=== PATIENT | male | born 1960 | race Caucasian/White ===

== ENCOUNTER 2019-05-04 22:29 | Emergency (ER) | payer MEDICAID ==
[~2019-05-04] VITALS: Ht 188 cm; Wt 89.8 kg
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
[2019-05-04] MEDS ORDERED: HYDROCODONE/APAP 10/325MG 1 EA TABLET ONE (22:45)
[2019-05-04] MEDS ORDERED: ONDANSETRON 4 MG TAB.RAPDIS ONE (22:46)
[2019-05-04] MEDS ORDERED: ONDANSETRON 4 MG TAB.RAPDIS SL ONE (23:00)
[2019-05-04] MEDS ORDERED: HYDROCODONE/APAP 10/325MG 1 EA TABLET PO ONE (23:00)
[2019-05-04] MEDS ORDERED: ASPIRIN 81 MG TAB.CHEW PO ONE (23:00)
[2019-05-04] MEDS ORDERED: IV NS 0.9% 1,000 ML BAG IV ONE (23:00)
[2019-05-04] MEDS ORDERED: NITROGLYCERIN PACKET 1 GM PACKET TD ONE (23:00)
[2019-05-04] MEDS ORDERED: CEFAZOLIN 1 GM in IV D5W 50 ML IV ONE (23:00)
[2019-05-04] MEDS ORDERED: NITROGLYCERIN PACKET 1 GM PACKET ONE (23:04)
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
[2019-05-04] MEDS ORDERED: ASPIRIN 81 MG TAB.CHEW ONE (23:05)
[2019-05-04 23:17] LABS: BASOPHILS # (AUTO) 0.1 /CMM (0.0-0.2); BASOPHILS % (AUTO) 1.4 % (0.0-2.0); EOSINOPHILS % (AUTO) 1.1 % (0.0-6.0); HEMATOCRIT 37 % (39-51); LYMPHOCYTES # (AUTO) 1.4 /CMM (0.8-4.8); LYMPHOCYTES % (AUTO) 14.2 % (20.0-44.0); MEAN CORPUSCULAR HGB CONC 35 g/dl (31.0-36.0); MEAN CORPUSCULAR VOLUME 87 fL (80-96); MONOCYTES % (AUTO) 9.9 % (2.0-12.0); NEUTROPHILS # (AUTO) 7.1 /CMM (1.8-8.9); NEUTROPHILS % (AUTO) 73.4 % (43.0-81.0); PLATELET COUNT (AUTO) 199 /CMM (150-450); WHITE BLOOD COUNT (AUTO) 9.7 K/uL (4.3-11.0)
--- NOTE | 2019-05-04 23:23 | NUR ---
X RAY AT BEDSIDE
[2019-05-04 23:30] LABS: CALCIUM, SERUM 8.8 mg/dL (8.5-10.1); CARBON DIOXIDE 27 mmol/L (21-32); CHLORIDE 104 mmol/L (98-107); CREATININE 1.3 mg/dL (0.6-1.3); GLUCOSE 100 mg/dL (74-106); POTASSIUM 3.6 mmol/L (3.5-5.1); SODIUM SERUM 139 mmol/L (136-145); UREA NITROGEN, BLOOD 35 mg/dL (7-18)
--- NOTE | 2019-05-04 23:35 | NUR ---
XRAY AT BEDSIDE
[2019-05-04 23:43] LABS: ALANINE AMINOTRANSFERASE 51 U/L (12-78); ALBUMIN 3.6 g/dL (3.4-5.0); ALKALINE PHOSPHATASE 61 U/L (46-116); ASPARTATE AMINOTRANSFERASE 35 U/L (15-37); B-TYPE NATRIURETIC PEPTIDE 76 PG/ML (0-125); BILIRUBIN,DIRECT 0.2 mg/dL (0.0-0.2); BILIRUBIN,TOTAL 0.9 mg/dL (0.2-1.0); TOTAL PROTEIN, SERUM 6.8 g/dL (6.4-8.2)
[2019-05-04] MEDS ORDERED: CEFTRIAXONE 1 G VIAL ONE (23:55)
[2019-05-05] MEDS ORDERED: CEFTRIAXONE 1 G in IV D5W 50 ML IV ONE ×2
--- NOTE | 2019-05-05 00:56 | NUR ---
RESTING COMFORTABLY IN BED. EASILY AROUSED. NAD. VSS. SAFETY MEASURES IN PLACE
[2019-05-05 02:00] LABS: APPEARANCE,URINE Clear (CLEAR); BILIRUBIN,URINE SMALL (NEGATIVE); BLOOD, URINE Negative Ery/uL (NEGATIVE); COLOR,URINE Yellow (YELLOW); KETONES,URINE 15 (NEGATIVE); LEUKOCYTE ESTERASE ,URINE Negative (NEGATIVE); NITRITE, URINE Negative (NEGATIVE); PROTEIN,URINE 30 mg/dl (NEGATIVE); UGLUCOSE Negative (NEGATIVE); UROBILINOGEN,URINE 0.2 EU/dL (0.2)
[2019-05-05 02:16] LABS: BACTERIA,URINE None seen /HPF (None Seen); RBC,URINE 0-2 /HPF (0-2); SQUAMOUS EPITHELIAL CELL,UR None Seen /HPF (None Seen); WBC,URINE 0-2 /HPF (0-3)
--- NOTE | 2019-05-05 02:53 | NUR ---
PT SITTING UPRIGHT TALKING ON CELL PHONE. NAD. VSS. STABLE CONDITION.
--- NOTE | 2019-05-05 04:47 | NUR ---
Patient discharged to home in stable condition. Written and verbal after care instructions given. Patient verbalizes understanding of instruction. IV removed. Catheter intact and site benign. Pressure and 4x4 applied to site. No bleeding noted. AMBULATED WITH STEADY GAIT. ADVISED NOT TO DRIVE OR OPERATE HEAVY MACHINERY. VSS. NAD
[2019-05-05 04:48] VITALS: BP 126/76
== END 2019-05-05 04:49 | disposition home or self-care (01) ==
LOC: ER 22:31 → EDBD 22:31 → ER 05-05 04:49
DX: R07.89 Other chest pain (principal); I10 Essential (primary) hypertension; F17.200 Nicotine dependence, unspecified, uncomplicated; Z90.89 Acquired absence of other organs; Z88.8 Allergy status to other drugs, medicaments and biological substances; Z60.2 Problems related to living alone; Y04.2XXA Assault by strike against or bumped into by another person, initial encounter; Y93.89 Activity, other specified; Y92.89 Other specified places as the place of occurrence of the external cause; Y99.8 Other external cause status
CPT/HCPCS: 36415 ×2; 71045; 72110; 72125; 73590 ×2; 80048; 80076; 80305; 81001; 83880; 84484 ×2; 85025; 85730; 93005; 96365; 99284; 99406; J0690; J0696; J7030; J7060 ×3; Q0162; 81000-TC

== ENCOUNTER 2019-05-26 05:29 | Emergency (ER) | payer MEDICAID ==
[~2019-05-26] VITALS: Ht 162.6 cm; Wt 70.8 kg
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
--- NOTE | 2019-05-26 05:41 | NUR ---
REPORT ALREADY MADE WITH DARIEL.
[2019-05-26 06:58] LABS: BASOPHILS # (AUTO) 0.1 /CMM (0.0-0.2); BASOPHILS % (AUTO) 0.9 % (0.0-2.0); EOSINOPHILS % (AUTO) 2.3 % (0.0-6.0); HEMATOCRIT 38 % (39-51); HEMOGLOBIN 13.2 g/dL (13.5-17.5); LYMPHOCYTES % (AUTO) 10.4 % (20.0-44.0); MEAN CORPUSCULAR HGB CONC 35 g/dl (31.0-36.0); MEAN CORPUSCULAR VOLUME 86 fL (80-96); MONOCYTES # (AUTO) 0.7 /CMM (0.1-1.30); MONOCYTES % (AUTO) 7.2 % (2.0-12.0); NEUTROPHILS % (AUTO) 79.2 % (43.0-81.0); PLATELET COUNT (AUTO) 210 /CMM (150-450); RED BLOOD CELL COUNT(AUTO) 4.43 MIL/uL (4.5-6.0); WHITE BLOOD COUNT (AUTO) 10.1 K/uL (4.3-11.0)
[2019-05-26 07:04] LABS: CALCIUM, SERUM 8.8 mg/dL (8.5-10.1); CARBON DIOXIDE 27 mmol/L (21-32); CHLORIDE 105 mmol/L (98-107); CREATININE 1.2 mg/dL (0.6-1.3); GLUCOSE 112 mg/dL (74-106); POTASSIUM 3.9 mmol/L (3.5-5.1); SODIUM SERUM 140 mmol/L (136-145); UREA NITROGEN, BLOOD 42 mg/dL (7-18)
[2019-05-26 07:05] LABS: ALCOHOL, BLOOD < 3 mg/dL (0-0)
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
[2019-05-26] MEDS ORDERED: IBUPROFEN 600 MG TABLET PO ONE ×2 (07:32→08:00)
--- NOTE | 2019-05-26 07:48 | NUR ---
DARIEL CALLED [phone] INCIDENT #[id number] [employer]WORK[employer] [phone]
--- NOTE | 2019-05-26 08:35 | NUR ---
[employer] AT BEDSIDE, INTERVIEWING THE PATIENT
--- NOTE | 2019-05-26 08:51 | NUR ---
DARIEL GUERRERO [id number], MARIA LUISA [id number], ESCORTED THE PATIENT OUT OF THE FACILITY. Patient discharged to home in stable condition. Written and verbal after care instructions given. Patient verbalizes understanding of instruction.
[2019-05-26 08:55] VITALS: BP 137/89
== END 2019-05-26 08:55 | disposition home or self-care (01) ==
LOC: ER 05:31
DX: S09.8XXA Other specified injuries of head, initial encounter (principal); R56.9 Unspecified convulsions; I10 Essential (primary) hypertension; F17.200 Nicotine dependence, unspecified, uncomplicated; Z90.89 Acquired absence of other organs; Z88.1 Allergy status to other antibiotic agents; Z60.2 Problems related to living alone; Z76.5 Malingerer [conscious simulation]; Y08.89XA Assault by other specified means, initial encounter; Y93.89 Activity, other specified; Y92.89 Other specified places as the place of occurrence of the external cause; Y99.8 Other external cause status
CPT/HCPCS: 36415; 70450-TC; 80048-TC; 85025-TC; G0480

== ENCOUNTER 2019-05-27 01:36 | Emergency (ER) | payer MEDICAID ==
[~2019-05-27] VITALS: Ht 182.9 cm; Wt 81.6 kg
--- NOTE | 2019-05-27 01:52 | NUR ---
PATIENT NOT IN THE WAITING ROOM.
[2019-05-27 02:14] VITALS: BP 131/77
[2019-05-27] MEDS ORDERED: KETOROLAC TROMETHAMINE INJ 60 MG/2 ML VIAL IM ONE (03:30)
== END 2019-05-27 05:09 | disposition home or self-care (01) ==
LOC: ER 01:44
DX: S06.0X0A Concussion without loss of consciousness, initial encounter (principal); I10 Essential (primary) hypertension; F17.200 Nicotine dependence, unspecified, uncomplicated; Z90.89 Acquired absence of other organs; Z88.1 Allergy status to other antibiotic agents; Z60.2 Problems related to living alone; Y08.89XA Assault by other specified means, initial encounter; Y93.89 Activity, other specified; Y92.89 Other specified places as the place of occurrence of the external cause; Y99.8 Other external cause status

== ENCOUNTER 2019-05-27 22:25 | Emergency (ER) | payer MEDICAID ==
[~2019-05-27] VITALS: Ht 180.3 cm; Wt 83.9 kg
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
--- NOTE | 2019-05-27 23:00 | NUR ---
PROVIDED SANDWICH, JUICE, AND BLANKET FOR COMFORT
--- NOTE | 2019-05-28 02:25 | NUR ---
pt ok to discharge per dr Castillo.Patient discharged to home in stable condition. Written and verbal after care instructions given. Patient verbalizes understanding of instruction.Patient is awake and alert to self, day, and place. Pt ambulatory with a steady gait
[2019-05-28 03:52] VITALS: BP 143/92
== END 2019-05-28 03:52 | disposition home or self-care (01) ==
LOC: ER 22:27
DX: R07.89 Other chest pain (principal); I10 Essential (primary) hypertension; F17.200 Nicotine dependence, unspecified, uncomplicated; Z90.89 Acquired absence of other organs; Z88.1 Allergy status to other antibiotic agents; Z60.2 Problems related to living alone
CPT/HCPCS: 36415; 71046; 84484-TC